=== PATIENT | female | born 1960 | race Caucasian/White ===

== ENCOUNTER → 2024-04-25 10:30 | Outpatient (CLI) | payer MEDICARE, SELFPAY ==
--- NOTE | 2024-04-25 10:35 | DI.CT.S_ITS ---
PROCEDURE: CT CERVICAL SPINE WO CON INDICATIONS: spondylosis of cervical spine w/myelopathy TECHNIQUE: Noncontrast 3 mm thick sections acquired from the skull base to the T4 level. Sagittal and coronal reformats were then constructed. For radiation dose reduction, the following was used: automated exposure control, adjustment of mA and/or kV according to patient size. COMPARISON: [facility], CR, XR CERVICAL SPINE WITH FLEXION EXTENSION, 04/08/2024, 9:13. FINDINGS: Image quality: Diagnostic Bones: There is straightening of the normal cervical lordosis. Moderate degenerative changes, with disc space height loss and protrusion most significantly at C5-C6. Vertebral body heights are well maintained. No traumatic subluxation. Soft tissues: No apical pneumothorax. No significant prevertebral soft tissue swelling. IMPRESSION: No displaced fracture or traumatic subluxation. Moderate spondylosis. If there is high concern for further derangement, consider MRI evaluation. Dictated by: Chandler Toscano M.D. on 04/26/2024 at 9:54 Approved by: Chandler Toscano M.D. on 04/26/2024 at 9:56
== END ==
LOC: CT 10:33
PROVIDERS: PCP Physician Assistant Medical; Referring Provider Orthopaedic Surgery Orthopaedic Surgery of the Spine; Visit Provider Orthopaedic Surgery Orthopaedic Surgery of the Spine
DX: M47.12 Other spondylosis with myelopathy, cervical region (principal); M50.022 Cervical disc disorder at C5-C6 level with myelopathy
CPT/HCPCS: 72125